=== PATIENT | female | born 1950 | race African-American/Black ===

== ENCOUNTER 2017-11-28 07:22 | Emergency (ER) | payer OTHER ==
[~2017-11-28] VITALS: Ht 162.6 cm; Wt 71.7 kg
[2017-11-28] MEDS ORDERED: NEURONTIN 300300 M1 PO (07:59)
[2017-11-28] MEDS ORDERED: OMEPRAZOLE 20 M20 M1 PO (07:59)
[2017-11-28] MEDS ORDERED: ACCUNEB SO1.25 MG/1 INH (08:00)
[2017-11-28] MEDS ORDERED: SPIRIVA RESPIMAT4 GM (08:00)
[2017-11-28] MEDS ORDERED: MYRBETRIQ50 MG PO (08:01)
[2017-11-28] MEDS ORDERED: IBUPROFEN 800800 M1 PO (08:02)
[2017-11-28] MEDS ORDERED: BREO ELLIPTA 21 EACH (08:02)
[2017-11-28] MEDS ORDERED: SIMVASTATIN40 MG PO (08:03)
[2017-11-28 08:40] LABS: ABSOLUTE NEUTROPHILS 3.7 thou/uL (1.4-8.2); BASOPHILS 0.6 % (0.0-2.0); EOSINOPHILS 2.1 % (0.0-3.0); HEMATOCRIT 35.7 % (37.0-47.0); HEMOGLOBIN 12.1 gm/dL (12.0-15.0); LYMPHOCYTES 25.3 % (24.0-44.0); MCV 85.4 fL (80.0-100.0); PLATELET COUNT 263 thou/uL (150-400); RBC 4.19 mil/uL (4.20-5.00); RDW 14.4 % (10.5-14.5); WBC 5.9 thou/uL (4.0-11.0)
[2017-11-28 08:46] LABS: ANION GAP 6 mmol/L (7-16); BUN 16 mg/dL (7-18); CALCIUM 9.1 mg/dL (8.5-10.1); CHLORIDE 104 mmol/L (98-107); CO2 26 mmol/L (21-32); CREATININE 0.9 mg/dL (0.6-1.0); GLUCOSE 127 mg/dL (74-106); POTASSIUM 4.7 mmol/L (3.5-5.1); SODIUM 136 mmol/L (136-145)
[2017-11-28 08:52] LABS: ALBUMIN 3.9 g/dL (3.4-5.0); DIRECT BILIRUBIN < 0.1 mg/dL (<0.1-0.3); SGOT 22 U/L (15-37); SGPT 18 U/L (30-65); TOTAL BILIRUBIN 0.5 mg/dL (<0.1-1.0); TOTAL PROTEIN 7.9 g/dL (6.4-8.2)
[2017-11-28] MEDS ORDERED: ULTRAM 50MG TAB50 MG PO (11:27)
[2017-11-28 11:34] VITALS: BP 122/76
== END 2017-11-28 11:30 | disposition home or self-care (01) ==
LOC: ER 07:22
PROVIDERS: Emergency Medicine
DX: R55 Syncope and collapse (principal); M67.472 Ganglion, left ankle and foot; M79.604 Pain in right leg; Z88.0 Allergy status to penicillin

== ENCOUNTER 2020-09-25 11:02 | Emergency (ER) | payer OTHER ==
[~2020-09-25] VITALS: Ht 162.6 cm; Wt 74.4 kg
[~2020-09-25 11:02] MED LIST: ACCUNEB SO1.25 MG/1 INH; BREO ELLIPTA 21 EACH; IBUPROFEN 800800 M1 PO; MYRBETRIQ50 MG PO; NEURONTIN 300300 M1 PO; OMEPRAZOLE 20 M20 M1 PO; SIMVASTATIN40 MG PO; SPIRIVA RESPIMAT4 GM; ULTRAM 50MG TAB50 MG PO
[2020-09-25] MEDS ORDERED: BACLOFEN 10MG T10 MG PO (11:49)
[2020-09-25] MEDS ORDERED: PREDNISONE 20 M20 MG PO (12:32)
[2020-09-25] MEDS ORDERED: NORCO5 PO (12:32)
[2020-09-25 12:59] VITALS: BP 152/106
== END 2020-09-25 13:00 | disposition home or self-care (01) ==
LOC: ER 11:02
DX: M54.16 Radiculopathy, lumbar region (principal); J44.9 Chronic obstructive pulmonary disease, unspecified; E78.00 Pure hypercholesterolemia, unspecified; K21.9 Gastro-esophageal reflux disease without esophagitis; Z79.899 Other long term (current) drug therapy; Z88.0 Allergy status to penicillin